=== PATIENT | male | born 1945 | race Caucasian/White ===

== ENCOUNTER 2017-10-11 02:13 | Emergency (ER) | payer MEDICARE, OTHER ==
[~2017-10-11] VITALS: Ht 177.8 cm; Wt 134.1 kg
[~2017-10-11 02:13] MED LIST: ADVICOR; ALLEGRA180 MG PO; AVODART0.5 MG PO; CARDURA 1MG1 MG PO; CENTRUM SILVER1 TA1 PO; CEPHALEXIN500 M1 PO; CIPRO; ECOTRIN325 MG PO; FISH OIL1000 MG PO; FLOMAX 0.40.4 MG/CAP PO; LEVOTHYROXINE PO; LEVOXYL; METFORMIN HCL500 M1 PO; NIACIN 250250 MG/CAP PO; PHENTERMINE37.5 MG PO; SINGULAIR; SYNTHROID0.125 MG PO; VIAGRA50 MG PO; VITAMIN C1 TAB PO; VITAMIN C500 MG PO; VITAMIN E-400200 IU PO; VYTORIN 10 MG-21 TAB PO; VYTORIN PO
[2017-10-11 02:23] VITALS: TEMP 97.7
[2017-10-11 03:03] LABS: BASO % 0.3 % (0.0-2.0); EOS % 0.1 % (0-4.0); GRAN # 8.6 (1.4-6.5); GRAN % 84.8 % (42.2-75.2); HEMATOCRIT 44.2 % (42.0-52.0); HEMOGLOBIN 15.6 g/dl (13.5-18.0); LYMPH # 0.9 (1.2-3.4); LYMPH % 8.4 % (20.0-51.0); MEAN CELL VOLUME 95 fl (80.0-100.0); MEAN CORPUSCULAR HEMOGLOBIN 34 pg (27.0-31.0); MEAN CORPUSCULAR HGB CONC 35 g/dl (33.0-37.0); MEAN PLATELET VOLUME 10.1 fl (7.4-10.4); MONO # 0.6 (0.1-0.6); PLATELET COUNT 182 K/mm3 (130-400); RED BLOOD COUNT 4.65 M/mm3 (4.20-5.60); WHITE BLOOD COUNT 10.2 K/mm3 (4.8-10.8)
[2017-10-11 03:15] LABS: ADJUSTED CALCIUM 9.3 mg/dL (8.4-10.2); ALANINE AMINOTRANSFERASE 42 U/L (21-72); ALBUMIN 4.7 gm/dL (3.5-5.0); ALKALINE PHOSPHATASE 83 U/L (50-136); ANION GAP 11 mmol/L (7-16); BLOOD UREA NITROGEN 13 mg/dL (9-20); CALCIUM 9.9 mg/dL (8.4-10.2); CARBON DIOXIDE 24 mmol/L (22-30); CHLORIDE 104 mmol/L (98-107); CREATININE, serum 0.71 mg/dL (0.66-1.25); GLUCOSE 152 mg/dL (74-106); LIPASE 96 U/L (23-300); POTASSIUM 4.3 mmol/L (3.4-5.0); SODIUM 139 mmol/L (137-145); TOTAL PROTEIN 7.2 gm/dL (6.4-8.2)
[2017-10-11 03:16] LABS: C-REACTIVE PROTEIN < 0.5 mg/dL (0.0-0.9)
[2017-10-11 03:26] LABS: TROPONIN-I < 0.012 ng/mL (0.000-0.034)
[2017-10-11 03:49] LABS: COLLECTION METHOD CLEAN CATCH
[2017-10-11 03:59] LABS: MUCOUS Present /lpf; PH 7 (5-8); SQUAMOUS EPITHELIAL None Seen /hpf; URINE APPEARANCE Clear; URINE BACTERIA None Seen /hpf; URINE BILIRUBIN Negative (NEGATIVE); URINE BLOOD Negative (NEGATIVE); URINE COLOR Yellow; URINE GLUCOSE Negative (NEGATIVE); URINE KETONE 1+ (NEGATIVE); URINE LEUKOCYTE ESTERASE Negative (NEGATIVE); URINE PROTEIN(semi-quant) 1+ (NEGATIVE); URINE WBC 0-2 /hpf
[2017-10-11 06:29] VITALS: BP 133/68; PULSE 78
== END 2017-10-11 06:30 | disposition home or self-care (01) ==
LOC: COL.ER 02:13
PROVIDERS: Emergency Medicine
DX: K42.0 Umbilical hernia with obstruction, without gangrene (principal); I10 Essential (primary) hypertension; E11.9 Type 2 diabetes mellitus without complications; I25.10 Atherosclerotic heart disease of native coronary artery without angina pectoris; K21.9 Gastro-esophageal reflux disease without esophagitis; E03.9 Hypothyroidism, unspecified; Z87.891 Personal history of nicotine dependence; Z87.442 Personal history of urinary calculi; Z79.82 Long term (current) use of aspirin; Z79.4 Long term (current) use of insulin
CPT/HCPCS: J2270; J2405; J7030; J7050; Q9967

== ENCOUNTER → 2017-10-16 | Outpatient (CLI) | payer MEDICARE, OTHER ==
[~2017-10-16] MED LIST changes: +ALLEGRA 180MG180 MG PO; +ASPIRIN 32325 MG/TAB PO; +CARDURA 8MG TAB8 MG PO; +COLACE 100100 MG/CAP PO; +GLUCOPHAGE XR500 M1 PO; +MOTRIN 600600 MG/TAB PO; +MULTIPLE VITAMI1 TA5 PO; +NORCO 325 MG-51 TAB PO; +OMEGA-3 1000 MG1 CAP PO; +SINGULAIR 110 MG/TAB PO; +SYNTHROID 0.10.15 MG PO; +VITAMIN E 400 U4001 PO
== END ==
LOC: COL.RAD 12:14
DX: R10.30 Lower abdominal pain, unspecified (principal)

== ENCOUNTER 2017-10-21 09:40 | Day surgery (SDC) | payer MEDICARE, OTHER ==
[~2017-10-21] VITALS: Ht 177.8 cm; Wt 131.5 kg
[~2017-10-21 09:40] MED LIST changes: -ALLEGRA 180MG180 MG PO; -ASPIRIN 32325 MG/TAB PO; -CARDURA 8MG TAB8 MG PO; -COLACE 100100 MG/CAP PO; -GLUCOPHAGE XR500 M1 PO; -MOTRIN 600600 MG/TAB PO; -MULTIPLE VITAMI1 TA5 PO; -NORCO 325 MG-51 TAB PO; -OMEGA-3 1000 MG1 CAP PO; -SINGULAIR 110 MG/TAB PO; -SYNTHROID 0.10.15 MG PO; -VITAMIN E 400 U4001 PO
[2017-10-21 10:08] VITALS: BP 132/74; PULSE 63; TEMP 97.2
[2017-10-21] MEDS ORDERED: SYNTHROID 0.10.15 MG PO (10:14)
[2017-10-21] MEDS ORDERED: FLOMAX 0.40.4 MG/CAP PO (10:14)
[2017-10-21] MEDS ORDERED: CARDURA 8MG TAB8 MG PO (10:15)
[2017-10-21] MEDS ORDERED: GLUCOPHAGE XR500 M1 PO (10:19)
[2017-10-21] MEDS ORDERED: OMEGA-3 1000 MG1 CAP PO (10:20)
[2017-10-21] MEDS ORDERED: MULTIPLE VITAMI1 TA5 PO (10:21)
[2017-10-21] MEDS ORDERED: ASPIRIN 32325 MG/TAB PO (10:21)
[2017-10-21] MEDS ORDERED: VITAMIN E 400 U4001 PO (10:21)
[2017-10-21] MEDS ORDERED: SINGULAIR 110 MG/TAB PO (10:22)
[2017-10-21] MEDS ORDERED: ALLEGRA 180MG180 MG PO (10:22)
[2017-10-21] MEDS ORDERED: COLACE 100100 MG/CAP PO (13:35)
[2017-10-21] MEDS ORDERED: MOTRIN 600600 MG/TAB PO (13:35)
[2017-10-21] MEDS ORDERED: NORCO 325 MG-51 TAB PO (13:36)
[2017-10-21 14:00] VITALS: BP 120/74; PULSE 66; TEMP 97.8
[2017-10-21 14:15] VITALS: BP 124/70; PULSE 64
[2017-10-21 14:30] VITALS: BP 137/75; PULSE 63
[2017-10-21 14:45] VITALS: BP 131/70; PULSE 61
== END 2017-10-21 15:55 | disposition home or self-care (01) ==
LOC: SDCO 09:40
DX: K42.9 Umbilical hernia without obstruction or gangrene (principal); I12.9 Hypertensive chronic kidney disease with stage 1 through stage 4 chronic kidney disease, or unspecified chronic kidney disease; E11.22 Type 2 diabetes mellitus with diabetic chronic kidney disease; E11.21 Type 2 diabetes mellitus with diabetic nephropathy; N18.9 Chronic kidney disease, unspecified; Z79.84 Long term (current) use of oral hypoglycemic drugs; E78.00 Pure hypercholesterolemia, unspecified; E03.9 Hypothyroidism, unspecified; E88.81 Metabolic syndrome and other insulin resistance; K21.9 Gastro-esophageal reflux disease without esophagitis; M19.90 Unspecified osteoarthritis, unspecified site; Z87.442 Personal history of urinary calculi; N40.0 Benign prostatic hyperplasia without lower urinary tract symptoms; Z95.5 Presence of coronary angioplasty implant and graft; Z87.891 Personal history of nicotine dependence; Z80.0 Family history of malignant neoplasm of digestive organs; Z82.49 Family history of ischemic heart disease and other diseases of the circulatory system; J30.9 Allergic rhinitis, unspecified; Z68.41 Body mass index [BMI] 40.0-44.9, adult; I25.10 Atherosclerotic heart disease of native coronary artery without angina pectoris; R20.2 Paresthesia of skin
CPT/HCPCS: C1781; J0690; J1100; J2270; J2405; J2704; J3010; J7030

== ENCOUNTER → 2018-03-11 | Outpatient (CLI) | payer MEDICARE, OTHER ==
[~2018-03-11] MED LIST changes: +ALLEGRA 180MG180 MG PO; +ASPIRIN 32325 MG/TAB PO; +CARDURA 8MG TAB8 MG PO; +COLACE 100100 MG/CAP PO; +GLUCOPHAGE XR500 M1 PO; +MOTRIN 600600 MG/TAB PO; +MULTIPLE VITAMI1 TA5 PO; +NORCO 325 MG-51 TAB PO; +OMEGA-3 1000 MG1 CAP PO; +SINGULAIR 110 MG/TAB PO; +SYNTHROID 0.10.15 MG PO; +VITAMIN E 400 U4001 PO
== END ==
LOC: COL.VAS 15:00
DX: M79.89 Other specified soft tissue disorders (principal)

== ENCOUNTER 2018-03-25 23:03 | Emergency (ER) | payer MEDICARE, OTHER ==
[~2018-03-25] VITALS: Ht 177.8 cm; Wt 130.5 kg
[2018-03-25 23:14] VITALS: TEMP 97.2
[2018-03-26 00:30] LABS: INR 1.4 (0.8-3.0); PROTHROMBIN TIME 16.3 SECONDS (9.7-12.8)
[2018-03-26 00:33] LABS: PARTIAL THROMBOPLASTIN TIME 30.8 SECONDS (26.0-37.0)
[2018-03-26 00:37] LABS: ALBUMIN 3.1 gm/dL (3.5-5.0); BILIRUBIN,TOTAL 0.6 mg/dL (0.0-1.0); CALCIUM 8.4 mg/dL (8.4-10.2); CREATININE, serum 0.84 mg/dL (0.66-1.25); POTASSIUM 3.8 mmol/L (3.4-5.0); TOTAL PROTEIN 6.5 gm/dL (6.4-8.2)
[2018-03-26 00:39] LABS: BASO % 0.2 % (0.0-2.0); EOS % 0.1 % (0-4.0); GRAN # 13.5 (1.4-6.5); GRAN % 82.8 % (42.2-75.2); HEMOGLOBIN 10.9 g/dl (13.5-18.0); LYMPH # 1.2 (1.2-3.4); LYMPH % 7.4 % (20.0-51.0); MEAN CELL VOLUME 98 fl (80.0-100.0); MEAN CORPUSCULAR HEMOGLOBIN 33 pg (27.0-31.0); MEAN CORPUSCULAR HGB CONC 33 g/dl (33.0-37.0); MEAN PLATELET VOLUME 9.5 fl (7.4-10.4); MONO # 1.3 (0.1-0.6); MONO % 7.8 % (1.7-9.3); PLATELET COUNT 331 K/mm3 (130-400); RED BLOOD COUNT 3.35 M/mm3 (4.20-5.60); REDCELL DISTRIBUTION WIDTH-CV 12.8 % (11.5-14.5)
[2018-03-26 00:41] LABS: HEMATOCRIT 32.9 % (42.0-52.0)
[2018-03-26 00:48] LABS: TROPONIN-I 0.072 ng/mL (0.000-0.034)
[2018-03-26 00:49] LABS: C-REACTIVE PROTEIN 18.3 mg/dL (0.0-0.9)
[2018-03-26] MEDS ORDERED: LASIX 20MG TABL20 MG PO (00:55)
[2018-03-26] MEDS ORDERED: KLOR-CON SPRIN10 MEQ PO (00:57)
[2018-03-26] MEDS ORDERED: VIAGRA100 M1 (00:58)
[2018-03-26] MEDS ORDERED: RT ADVAIR HFA 1112 G IH (01:00)
[2018-03-26 01:41] LABS: ARTERIAL BLD GAS O2 SATURATION 87.4 % (92-100); ARTERIAL BLD GAS TCO2 CT 26.6; ARTERIAL BLOOD GAS BASE EXCESS 2.7 (-2-2); ARTERIAL BLOOD GAS HCO3 25.6 meq/L (22-26); ARTERIAL BLOOD GAS PCO2 33.6 mmHg (35-45); ARTERIAL BLOOD GAS PO2 50.3 mmHg (80-100)
[2018-03-26 02:43] VITALS: BP 100/60; PULSE 96
== END 2018-03-26 02:56 | disposition short-term general hospital (02) ==
LOC: COL.ER 23:03
PROVIDERS: Emergency Medicine
DX: I21.4 Non-ST elevation (NSTEMI) myocardial infarction (principal); I25.119 Atherosclerotic heart disease of native coronary artery with unspecified angina pectoris; J18.1 Lobar pneumonia, unspecified organism; E11.9 Type 2 diabetes mellitus without complications; I50.9 Heart failure, unspecified; I26.99 Other pulmonary embolism without acute cor pulmonale; N40.0 Benign prostatic hyperplasia without lower urinary tract symptoms; Z95.1 Presence of aortocoronary bypass graft; Z95.5 Presence of coronary angioplasty implant and graft; Z79.84 Long term (current) use of oral hypoglycemic drugs; Z79.82 Long term (current) use of aspirin; Z79.51 Long term (current) use of inhaled steroids
CPT/HCPCS: J0696; J1650; J1940; J2270; J2405